=== PATIENT | female | born 1945 | race Caucasian/White ===

== ENCOUNTER → 2020-09-15 16:05 | Outpatient (CLI) | payer OTHER, SELFPAY ==
--- NOTE | 2020-09-15 | DI.MG.S_ITS ---
BILATERAL DIGITAL SCREENING MAMMOGRAM 3D/2D WITH CAD: 09/15/2020 CLINICAL: Routine screening. Comparison is made to exams dated: 07/27/2020 mammogram, 12/15/2019 mammogram, 10/17/2018 mammogram, and 07/27/2020 ultrasound - [facility]. There are scattered fibroglandular elements in both breasts. Current study was also evaluated with a Computer Aided Detection (CAD) system. There is a possible developing asymmetry in the left breast at 11 o'clock middle depth. This is more prominent. No other significant masses, calcifications, or other findings are seen in either breast. IMPRESSION: INCOMPLETE: NEEDS ADDITIONAL IMAGING EVALUATION The possible developing asymmetry in the left breast is indeterminate. Additional views with possible ultrasound are recommended. This exam was interpreted at Station ID: [id number]. NOTE: For mammograms, a report in lay terms will be sent to the patient. Approximately 15% of breast malignancies will not be visualized mammographically. In the management of a palpable breast mass, a negative mammogram must not discourage biopsy of a clinically suspicious lesion. Electronically Signed By: Bree lam/kath:09/15/2020 18:27:21 letter sent: Additional Imaging Needed ACR BI-RADS Category 0: Incomplete 3340F
== END ==
PROVIDERS: Referring Provider Surgery; Visit Provider Surgery
DX: Z12.31 Encounter for screening mammogram for malignant neoplasm of breast (principal)
CPT/HCPCS: 77063; 77067

== ENCOUNTER → 2020-09-22 07:51 | Outpatient (CLI) | payer OTHER, SELFPAY ==
--- NOTE | 2020-09-22 07:54 | DI.MRI.S_ITS ---
BREAST MRI OF BOTH BREASTS- POST LUMPECTOMY WITH CAD: 09/22/2020 CLINICAL: Left nipple inversion. Comparison is made to exams dated: 09/15/2020 mammogram - [facility], 07/27/2020 mammogram, 12/15/2019 mammogram, and 10/17/2018 mammogram - [facility]. Interpretation of this MRI was correlated with available mammograms and ultrasounds. Informed consent was obtained from the patient. 20 cc of ProHance (Gadoteridol) nonionic contrast was injected. Axial T1, T2, sagittal T1, and pre and post contrast T1 images were obtained with a dedicated breast coil. Post processing was performed including computer aided calculations of any tumor volumes and dimensions. There is mild background parenchymal enhancement. Right breast: No discrete mass or suspicious enhancement to suggest malignancy. Left breast: The left breast is asymmetrically smaller in size than the right. Postsurgical changes are redemonstrated in the upper outer quadrant consistent with prior partial mastectomy. There is mild asymmetric left nipple retraction. There is mild linear left retroareolar enhancement likely within a duct which extends approximately 2 cm deep to the nipple. Kinetic enhancement curves demonstrate predominantly slow initial rise with progressive enhancement. However, there are also a few small foci of rapid initial enhancement with washout. Elsewhere in the left breast, no discrete mass or suspicious enhancement are identified. Miscellaneous: No axillary or internal mammary lymphadenopathy by size criteria. There is a large hiatal hernia partially visualized. IMPRESSION: SUSPICIOUS OF MALIGNANCY 1. Mild asymmetric left nipple retraction with small region of linear left retroareolar enhancement likely associated with a duct. The findings are indeterminate but DCIS cannot be excluded. There is no definite correlate identified on mammography. Recommend MRI guided biopsy if clinically indicated. Alternatively, a six-month follow-up MRI may be performed to demonstrate stability. 2. No evidence of malignancy in the right breast. 3. Patient is also due to return for additional views of a left breast asymmetry seen on recent mammogram with possible ultrasound. No discrete corresponding mass or abnormal enhancement was visualized on MRI. This exam was interpreted at Station ID: [id number]. Electronically Signed By: Julián Lr M.D. ddp/:09/22/2020 15:47:15 copy to: SHIRIN FREEMAN letter sent: Biopsy Required ACR BI-RADS Category 4: Suspicious abnormality 3344F
== END ==
PROVIDERS: PCP Registered Nurse; Referring Provider Surgery; Visit Provider Surgery
DX: N64.59 Other signs and symptoms in breast (principal); C50.919 Malignant neoplasm of unspecified site of unspecified female breast
CPT/HCPCS: 77049

== ENCOUNTER → 2021-05-30 10:38 | Outpatient (CLI) | payer OTHER, SELFPAY ==
--- NOTE | 2021-05-30 | DI.MRI.S_ITS ---
BREAST MRI OF BOTH BREASTS: 05/30/2021 CLINICAL: Personal history of malignant neoplasm of breast. INDICATIONS: Personal history of malignant neoplasm of breast TECHNIQUE: The patient was placed prone in a dedicated breast imaging coil. Precontrast axial STIR and 3D FLASH without fat saturation sequences were obtained. Both before and after bolus injection of contrast, sequential 1-minute axial 3D FLASH with fat saturation sequences for 3 time points, with subtraction images and maximum intensity projections (MIP's) generated. Delayed sagittal FLASH images with fat saturation were also obtained. 20 cc ProHance gadolinium based IV contrast was administered without complication. Computer-aided detection, including computer algorithm analysis of MRI image data for lesion detection and characterization, pharmacokinetic analysis, with further physician review for interpretation, was performed. COMPARISON: [facility], MG, MM SCREENING MAMMO BI, 09/15/2020, 16:46. [facility], MR, MR BREAST BI WO/W CON, 09/22/2020, 8:29. FINDINGS: Image quality: Excellent. There is minimal background parenchymal enhancement. Right breast: There is a new 4 mm focus of medium initial and medium peak enhancement in the 2 o'clock position of the anterior right breast. Another 4 mm focus of arterial enhancement with of benign kinetics is present at the posterior depth centrally, and was present on the prior study. There are foci of enhancement close to the chest wall are likely small intramammary nodes, present on the prior study and on mammogram. Left breast: The left breast is asymmetrically smaller compared to the right, stable. Subareolar tissue thickening is slightly more pronounced compared to the prior study. This very mildly enhances, below the level of threshold for evaluation of enhancement kinetics. Linear non mass enhancement extending into the tissues is again seen. The mammogram demonstrates dense branching calcifications just deep to this area. In the left breast at a middle depth in the 11-12 o'clock position, there is a 0.7 x 0.6 x 0.7 cm enhancing mass seen best on the sagittal images adjacent to the area of branching calcification. This corresponds to the area of developing asymmetry noted on prior mammogram. Postsurgical changes in the lateral left breast are seen including several micro metallic artifacts extending to the skin surface. There are intramammary lymph nodes along the posterior chest wall, present previously. Miscellaneous: No axillary or internal mammary chain adenopathy. The visible portions of the chest wall, liver, heart, and lungs appear normal. IMPRESSION: INCOMPLETE: NEEDS ADDITIONAL IMAGING EVALUATION 1. Slight increase in subareolar tissue thickening, enhancement, and linear non masslike minimal enhancement in the left breast resulting in nipple retraction. 2. Increased prominence of the 7 mm enhancing soft tissue mass adjacent to an area of dense branching ductal calcifications in the left breast at the 11-12 o'clock position, corresponding to a possible asymmetry noted on prior mammogram. Diagnostic mammogram and ultrasound is recommended for the left breast. 3. No suspicious mass or non masslike enhancement in the right breast. BIRADS 0, additional imaging is recommended. COMMENT: The imaging literature indicates that a negative contrast breast MRI examination has a high sensitivity and a moderate specificity for detecting and excluding invasive carcinomas to a detection threshold of 3-5 mm; nonetheless, appropriate clinical and mammographic follow-up are recommended. MRI is not sensitive for detecting DCIS (ductal carcinoma in situ) and may not detect large invasive neoplasms that show only minimal enhancement such as mucinous carcinoma. If there are suspicious calcifications or clinically worrisome palpable masses, then biopsy should still be considered. Invasive neoplasms can be hidden by co-existent and benign enhancement caused by mastitis, hormone therapy effects, radiation therapy, , and recent biopsy or surgery. False positive examinations can occur in a number of circumstances, including breasts that have recently been subject to invasive procedures and those that contain atypical ductal hyperplasia, hormonally stimulated glandular tissue, fat necrosis, or radial scars. This exam was interpreted at Station ID: [id number]. Electronically Signed By: Bree lam/:05/30/2021 17:26:11 Entry: neil - 05/31/2021 06:57:54 copy to: SHIRIN PABON BI-RADS Category 0: Incomplete 3340F
== END ==
PROVIDERS: PCP Registered Nurse; Referring Provider Surgery; Visit Provider Surgery
DX: R92.8 Other abnormal and inconclusive findings on diagnostic imaging of breast; N64.59 Other signs and symptoms in breast; N63.22 Unspecified lump in the left breast, upper inner quadrant; Z85.3 Personal history of malignant neoplasm of breast
CPT/HCPCS: 77049; A9579

== ENCOUNTER → 2021-07-11 11:45 | Outpatient (CLI) | payer OTHER, SELFPAY ==
--- NOTE | 2021-07-11 | DI.MG.S_ITS ---
BILATERAL DIGITAL DIAGNOSTIC MAMMOGRAM 3D/2D: 07/11/2021 CLINICAL: Diagnostic mammogram recommended on recent MRI. Comparison is made to exams dated: 05/30/2021 breast MRI - [facility], 10/13/2020 ultrasound - [facility], 09/22/2020 breast MRI - [facility], 10/13/2020 mammogram - [facility], 09/15/2020 mammogram - [facility], and 07/27/2020 mammogram - [facility]. There are scattered fibroglandular elements in both breasts. There is an irregular asymmetry in the left breast middle depth lateral region seen on the craniocaudal view only. This is not significantly changed and possibly correlates with breast MRI findings. This is possibly more prominent compared to prior mammograms but not significantly changed since 2020. No correlate seen on lateral projections. There also is an irregular equal density asymmetry in the left breast middle depth inferior region seen on the mediolateral oblique view only. This is less prominent and decreased in size and possibly correlates with breast MRI findings. No other significant masses, calcifications, or other findings are seen in either breast. IMPRESSION: INCOMPLETE: NEEDS ADDITIONAL IMAGING EVALUATION The irregular asymmetry in the left breast middle depth lateral region seen on the craniocaudal view only is indeterminate and may correlate with MRI findings. An ultrasound is recommended. The irregular equal density asymmetry in the left breast middle depth inferior region seen on the mediolateral oblique view only is indeterminate and may correlate with MRI findings. An ultrasound is recommended. An ultrasound is recommended for further evaluation and is scheduled for a later date. Findings and recommendations were conveyed to the patient during today's evaluation. This exam was interpreted at Station ID: [id number]. NOTE: For mammograms, a report in lay terms will be sent to the patient. Approximately 15% of breast malignancies will not be visualized mammographically. In the management of a palpable breast mass, a negative mammogram must not discourage biopsy of a clinically suspicious lesion. Electronically Signed By: Augustin Woods M.D. aty/:07/13/2021 17:46:33 copy to: SHIRIN FREEMAN [facility] BI-RADS Category 0: Incomplete 3340F
== END ==
PROVIDERS: PCP Registered Nurse; Referring Provider Surgery; Visit Provider Surgery
DX: R92.8 Other abnormal and inconclusive findings on diagnostic imaging of breast (principal); N64.89 Other specified disorders of breast
CPT/HCPCS: 77066; G0279

== ENCOUNTER → 2021-09-01 10:52 | Outpatient (CLI) | payer OTHER, SELFPAY ==
--- NOTE | 2021-09-01 | DI.US.S_ITS ---
LIMITED ULTRASOUND OF LEFT BREAST AND AXILLA: 09/01/2021 CLINICAL: Patient returns today to evaluate an asymmetry in the left breast. No prior exams were available for comparison. Color flow and real-time ultrasound of the left breast 2-4 o'clock, and axilla regions were performed. Manzo scale images of the real-time examination were reviewed. There is no ultrasound abnormality to correspond with the irregular asymmetry in the left breast middle depth lateral region craniocaudal view only described on mammogram dated 07/11/2021. IMPRESSION: PROBABLY BENIGN An area of shadowing with small calcifications seen 10 cm from the nipple corresponds with an area of spiculation seen on prior mammogram which has been stable for the last year, as well as described on prior MRI on 05/30/2021. The area of asymmetry in question seen on prior mammogram has no corresponding ultrasound abnormality. A follow-up mammogram in 6 months is recommended to demonstrate stability of the mammographic abnormality in question. This exam was interpreted at Station ID: [id number]. Electronically Signed By: Elbert Mays acr/:09/01/2021 12:44:13 copy to: SHIRIN FREEMAN letter sent: Followup Recommended Ultrasound BI-RADS: 3 Probably benign
== END ==
PROVIDERS: PCP Registered Nurse; Referring Provider Surgery; Visit Provider Surgery
DX: R92.8 Other abnormal and inconclusive findings on diagnostic imaging of breast (principal); R92.1 Mammographic calcification found on diagnostic imaging of breast
CPT/HCPCS: 76642